=== PATIENT | female | born 1950 | race Caucasian/White ===

== ENCOUNTER 2020-12-18 21:21 | Emergency (ER) | payer OTHER ==
[~2020-12-18] VITALS: Ht 165.1 cm; Wt 72.0 kg
[2020-12-18 21:24] VITALS: BP 147/80
== END 2020-12-18 22:02 | disposition left against medical advice (07) ==
LOC: ER 21:21
DX: M79.10 Myalgia, unspecified site (principal); Z53.21 Procedure and treatment not carried out due to patient leaving prior to being seen by health care provider